=== PATIENT | male | born 1975 | race African-American/Black ===

== ENCOUNTER 2018-12-02 18:07 | Emergency (ER) | payer OTHER ==
[~2018-12-02 18:07] MED LIST: ISOVUE-370 76%-LOCM 1 ML ONE
[2018-12-02] MEDS ORDERED: Fentanyl 100 MCG/2 ML VIAL ONE (18:22)
[2018-12-02] MEDS ORDERED: CEFAZOLIN 1 GM VIAL ONE (18:22)
[2018-12-02] MEDS ORDERED: Adacel (T-DAP) 0.5 ML SYRINGE ONE (18:22)
[2018-12-02] MEDS ORDERED: Bacitracin 1 PK ONE (18:34)
[2018-12-02 18:36] LABS: Hemoglobin 13.1 g/dL (14.0-18.0); Mean Corpuscular HGB CONC 33.3 g/dL (32.0-36.0); Mean Corpuscular Hemoglobin 28.6 pg (27.0-31.0); Mean Corpuscular Volume 85.9 fL (78.0-98.0); Platelet Count 213 thou/uL (130-400); RBC Distribution Width 12.4 % (11.5-14.5); Red Blood Cell (RBC) Count 4.59 mill/uL (4.70-6.10); White Blood Cell (WBC) Count 5.9 thou/uL (4.8-10.8)
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
[2018-12-02 18:58] LABS: Acetaminophen Less than 6.0 mcg/mL (10.0-30.0); Alcohol Less than 10 mg/dL (Less than 10); Salicylate Less than 8.0 mg/dL (15.0-30.0)
[2018-12-02 18:59] LABS: ALT (SGPT) 7 U/L (8-55); AST (SGOT) 15 U/L (5-34); Albumin 4.7 g/dL (3.5-5.0); Alkaline Phosphatase 54 U/L (40-150); Anion Gap 12 mmol/L (10-20); BUN (Urea Nitrogen) 14 mg/dL (8.9-20.6); Bilirubin, Total 0.6 mg/dL (0.2-1.2); Calc. Creatinine Clearance 0 mL/min (70-130); Calcium 9.5 mg/dL (7.8-10.44); Carbon Dioxide 24 mmol/L (22-29); Chloride 105 mmol/L (98-107); Eosinophils 1 % (0-10); Estimated GFR-MDRD Greater than 90; Globulin 2.6 g/dL (2.4-3.5); Glucose 99 mg/dL (70-105); Lipase 27 U/L (8-78); Lymphocytes 44 % (21-51); MDiff Complete? YES; Monocytes 5 % (0-10); Neutrophil 46 % (42-75); Platelet Morphology Comment Appears Adequate; Potassium 3.4 mmol/L (3.5-5.1); Protein, Total 7.3 g/dL (6.0-8.3); Reactive Lymphocytes 3 % (0-10); Sodium 138 mmol/L (136-145)
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
[2018-12-02] MEDS ORDERED: Lidocaine 1% PF 5 ML VIAL ONE (19:16)
[2018-12-02] MEDS ORDERED: Morphine 4 MG/ML VIAL ONE (20:18)
[2018-12-02 20:36] LABS: Bilirubin Negative (Negative); Blood, Urine Negative (Negative); Clarity Clear (Clear); Glucose, Urine (Dipstick) Normal (Negative); Leukocyte Negative Leu/uL (Negative); Nitrite Negative (Negative); Protein, Urine (Dipstick) Negative (Neg-Trace); Urobilinogen Normal mg/dL (Less than 2)
[2018-12-02 20:44] LABS: Amphetamine Not Detected (NotDetected); Barbiturates Screen Not Detected (NotDetected); Benzodiazepine Screen Not Detected (NotDetected); Cocaine Metabolite Screen Not Detected (NotDetected); Medtox Control Line Valid? VALID (VALID); Medtox Reader # READER 1; Methadone Not Detected (NotDetected); Methamphetamine Not Detected (NotDetected); Opiate Screen Not Detected (NotDetected); Oxycodone Screen Not Detected (NotDetected); Phencyclidine (PCP) Detected (NotDetected); THC/Cannabinoid Screen Detected (NotDetected); Tricyclic Screen Not Detected (NotDetected)
[2018-12-02] MEDS ORDERED: traMADol HCl 50 MG TAB ONE (21:31)
== END 2018-12-02 21:27 | disposition home or self-care (01) ==
LOC: ERS 18:07
DX: S42.101A Fracture of unspecified part of scapula, right shoulder, initial encounter for closed fracture (principal); S11.91XA Laceration without foreign body of unspecified part of neck, initial encounter; S00.03XA Contusion of scalp, initial encounter; F17.210 Nicotine dependence, cigarettes, uncomplicated; V89.2XXA Person injured in unspecified motor-vehicle accident, traffic, initial encounter; Z23 Encounter for immunization
CPT/HCPCS: 12002; 70450; 71260; 72125; 74177; 80053; 80306; 80307; 81003; 83605; 83690; 85025; 90471; 90715; 93005; 94760; 96365; 96375; G0390; J0690; J2001; J2270; J3010; Q9966

== ENCOUNTER 2018-12-09 07:54 | Emergency (ER) | payer OTHER | END 2018-12-09 08:43 | disposition home or self-care (01) | LOC: ERS 07:54 | DX: S11.91XD Laceration without foreign body of unspecified part of neck, subsequent encounter (principal); F17.210 Nicotine dependence, cigarettes, uncomplicated; V89.2XXD Person injured in unspecified motor-vehicle accident, traffic, subsequent encounter ==

== ENCOUNTER 2018-12-14 11:12 | Emergency (ER) | payer OTHER | END 2018-12-14 11:38 | disposition home or self-care (01) | LOC: ERS 11:12 | DX: S11.91XD Laceration without foreign body of unspecified part of neck, subsequent encounter (principal); F17.210 Nicotine dependence, cigarettes, uncomplicated; Z79.891 Long term (current) use of opiate analgesic; Z79.899 Other long term (current) drug therapy; X58.XXXD Exposure to other specified factors, subsequent encounter ==